=== PATIENT | male | born 1960 | race Caucasian/White ===

== ENCOUNTER 2016-06-16 21:03 | Emergency (ER) | payer SELFPAY ==
[~2016-06-16] VITALS: Ht 182.9 cm; Wt 106.8 kg
[2016-06-16 21:16] VITALS: BP 120/71; PULSE 94; RESP 18; O2SAT 98
--- NOTE | 2016-06-16 21:48 | DRSVH ---
PROCEDURE: X-RAY LEFT SHOULDER, MINIMUM TWO VIEWS ([id number]) INDICATIONS: PAIN TECHNIQUE: 2 views of the shoulder were acquired. COMPARISON: None. FINDINGS: Bones: There is an acute fracture of the lateral aspect of the humeral head. This is a greater trocha nter fracture nondisplaced and measures approximately 3.5 x 1.6 cm in size. Soft tissues: No suspicious soft tissue calcifications. IMPRESSION: Nondisplaced greater trochanter fracture of the humeral head. Dictated by: Drew Mcmillan M.D. on 06/16/2016 at 21:46 Approved by: Drew Mcmillan M.D. on 06/16/2016 at 21:46
--- NOTE | 2016-06-17 00:22 | ED.REPORT ---
HPI-Extremity Problem Upper Date of Service Jun 17, 2016 ED Provider: Sukhdeep Higuera MD 56 year old male presents to the ER with left shoulder pain status post ground level fall tonight. He states that he was walking his dog and became tangled in the leash, then fell on frozen ground landing directly on the affected joint. Patient denies any head or neck trauma, and any other injuries secondary to the fall. Nursing Notes Stated Complaint: LEFT SHOULDER INJURY Chief Complaint: Extremity Trauma Nursing Notes Reviewed: Yes Allergies: Coded Allergies: No Known Allergies (Unverified , 06/16/16) Scheduled PRN oxyCODONE-Acetaminophen 5-325 mg (oxyCODONE-Acetaminophen 5-325 mg) 1 Each Tablet 1-2 TAB PO Q6H PRN PRN For Pain General Time Seen by MD: 00:18 Chief Complaint Shoulder injury left Hx Obtained From: Patient Arrived By: Walk-in Onset Occurred: Yesterday Symptom Duration: Since onset Caused by: Accidental, Fall on ground Context: Occurred at: Home injury Location: : Shoulder left Quality: Painful Severity: Current: Moderate Severity: Maximum: Moderate Associated with: Denies: Back pain, Neck pain Pertinent Negative: Pt denies other symptoms Exacerbated by: Range of motion, Movement Pertinent Negative: Relieved by nothing Past Medical History Past Medical History Healthy Smoking History Unknown if Ever Smoker Social History Alcohol Use: 1-3 per day Ambulatory Status Independent Review of Systems Musculoskeletal: Reports: Joint pain (Shoulder, Left), Denies: Back pain, Extremity pain, Lumbar pain, Neck pain, Thoracic pain Neurologic: Denies: Headache, Syncope Complete sys rev & neg: except as marked. Physical Exam Initial Vital Signs Vital Signs (First) Date Time Temp Pulse Resp B/P Pulse Ox O2 Delivery O2 Flow Rate FiO2 06/16/16 21:16 36.3 94 18 120/71 98 Room Air Initial VS: Reviewed, Vital signs normal General/Constitutional: Well-developed, Well-nourished Head / Eyes: Atraumatic, Normocephalic Neck: Supple, Non-tender, Full range of motion Abdomen / GI: Soft, Non-tender, No guarding, No rebound, No distention Lower Extremities: Vascular intact, Neuro intact, No swelling, No tenderness Skin: Warm, Dry, No cyanosis Neurologic: Alert, Oriented, Nonfocal Psychiatric: Mood/affect normal, Behavior normal, Normal thought content Respiratory / Chest: Breath sounds NL, Breath sounds = bilat, No respiratory distress, No rales, No rhonchi, No wheezing Cardiovascular: Heart rate NL, Regular rhythm, Heart sounds NL, Peripheral circulation NL Interpretation & Diagnostics X-Ray Interpretation Xray Interpretation: IMPRESSION: Nondisplaced greater trochanter fracture of the humeral head. Dictated by: Drew Mcmillan M.D. on 06/16/2016 at 21:46 Approved by: Drew Mcmillan M.D. on 06/16/2016 at 21:46 X-Ray Ordered: Shoulder left Interpretation / Wet Read by: Interpret - Radiologist Procedures Splint Application - Fx Mgt Time: 00:30 Procedure Performed by: Plastering Contractor Precise Anatomic Location: Left Shoulder Shoulder immobilizer Post-Procedure / Complications: Cap refill normal, Post splint vascular nl, Post splint neuro nl, Condition improved, Tolerated procedure well, Patient stable Splint Post-Application Eval Extremity Condition: Cap refill < 2 sec, Distal sensation intact, Distal motor Intact, No compartment syndrome Re-Eval/Medical Decision Med Decision/Clinical Course Nondisplaced fracture of the left humeral head. Immobilized. Percocet 2 tabs now and then #10 dispensed with a prescription for an additional 30th needed. Follow-up at [facility] in the next 3-4 days. Counseled Regarding: Diagnosis, Need for follow-up, When/why to return to ED Discharge & Departure Impression: Primary Impression: Fracture of humeral head, left, closed Encounter type: initial encounter Qualified Code: S42.292A - Other displaced fracture of upper end of left humerus, initial encounter for closed fracture Disposition: Home Discharge Condition All VS Reviewed: Yes Condition: Stable Patient Instructions: Arm Fracture in Adults (ED) Additional Instructions: Wear the shoulder immobilizer at all times. As I mentioned it may be helpful to get a second shoulder immobilizer so you can change it out after showering. Call in the morning and schedule a follow-up appointment with Dr. Thompson at [facility] in 3-5 days. Acetaminophen and/or ibuprofen as needed for pain. Oxycodone/acetaminophen 5/325, one or 2 every 4-6 hours as needed for severe pain, #2 given in the emergency room, #10 dispensed, #30 prescription written. No driving, and do not use this arm. Referrals: NOPCP (PCP) Ketan Thompson MD Attestation Portions of this note were transcribed by Sathya Donald. I, Dr. Higuera, personally performed the history, physical exam and medical decision-making; I reviewed and confirmed the accuracy of the information in the transcribed note. Signed by: Reyna Perez. 06/17/2016, 01:01 copies to: Ketan Thompson MD, Howard L MD Jun 17, 2016 00:22 SATHYA DONALD Jun 17, 2016 00:32
[2016-06-17] MEDS ORDERED: _oxyCODONE/APAP 5-325 mg Tablet PO PRN (00:35)
[2016-06-17] MEDS ORDERED: oxyCODONE-Acetamin 5-325 mg Tablet PO ONE (00:35)
[2016-06-17] MEDS ORDERED: OXYC1TAB24 PO (01:04)
[2016-06-17 01:15] VITALS: BP 127/72; PULSE 71; RESP 18; O2SAT 99
== END 2016-06-17 01:32 | disposition home or self-care (01) ==
LOC: SED 21:03
DX: S42.292A Other displaced fracture of upper end of left humerus, initial encounter for closed fracture (principal); W18.30XA Fall on same level, unspecified, initial encounter; Y93.K1 Activity, walking an animal; Y92.9 Unspecified place or not applicable; Y99.8 Other external cause status